=== PATIENT | male | born 1995 | race Caucasian/White ===

== ENCOUNTER 2018-07-16 19:13 | Emergency (ER) | payer OTHER ==
[2018-07-16 19:17] VITALS: BP 135/89; PULSE 91; RESP 18; TEMP 98.3
--- NOTE | 2018-07-16 19:33 | ED ---
Lower Extremity Injury HPI - General Chief Complaint: Extremity Injury, Lower Stated Complaint: rt foot injury Time Seen by Provider: 07/16/18 19:24 Source: patient, family Mode of arrival: ambulatory Limitations: no limitations - History of Present Illness Initial Comments: 22-year-old male patient presents to the emergency department today for evaluati on of right foot pain. Patient states that around 2:00 this afternoon he kicked a door. Patient states since then he has been having pain to the dorsal aspect of his right foot. Patient denies any swelling or ecchymosis. Denies any numbness or tingling to the foot. Denies any previous injury to the foot. States he is able to ambulate but it is painful. Denies taking any pain medication for his symptoms. Denies any other injuries. Patient denies any headache, neck pain, back pain, chest pain, shortness of breath, dizziness, weakness, abdominal pain, nausea, vomiting, or difficulties with bowel movements or urination. - Related Data Home Medications Medication Instructions Recorded Confirmed No Known Home Medications 07/16/18 07/16/18 Allergies Allergy/AdvReac Type Severity Reaction Status Date / Time No Known Allergies Allergy Verified 07/16/18 19:17 Review of Systems ROS Statement: Those systems with pertinent positive or pertinent negative responses have been documented in the HPI. ROS Other: All systems not noted in ROS Statement are negative. Past Medical History Past Medical History: No Reported History History of Any Multi-Drug Resistant Organisms: None Reported Past Surgical History: Orthopedic Surgery Past Psychological History: No Psychological Hx Reported Smoking Status: Never smoker Past Alcohol Use History: None Reported Past Drug Use History: None Reported General Exam Limitations: no limitations General appearance: alert, in no apparent distress, other (This is a well- developed, well-nourished adult male patient in no acute distress. Vital signs upon presentation are temperature 98.3F, pulse 91, respirations 18, blood pressure 135/89, pulse ox 98% on room air.) Eye exam: Present: normal appearance, PERRL, EOMI. Absent: scleral icterus, conjunctival injection, periorbital swelling ENT exam: Present: normal exam, normal oropharynx, mucous membranes moist Respiratory exam: Present: normal lung sounds bilaterally. Absent: respiratory distress, wheezes, rales, rhonchi, stridor Cardiovascular Exam: Present: regular rate, normal rhythm, normal heart sounds. Absent: systolic murmur, diastolic murmur, rubs, gallop, clicks Extremities exam: Present: full ROM, tenderness (Right foot, dorsal aspect especially over the right fourth and fifth metatarsal. ), normal capillary refill, other (Skin to the right foot is pink, warm, dry. Cap refills less than 3 seconds. Pedal posttibial pulses are 2+ and equal bilaterally. Full range of motion is intact.). Absent: normal inspection, pedal edema, joint swelling, calf tenderness Neurological exam: Present: alert, oriented X3, CN II-XII intact Psychiatric exam: Present: normal affect, normal mood Skin exam: Present: warm, dry, intact, normal color. Absent: rash Course Vital Signs 07/16/18 19:15 Temperature 98.3 F Pulse Rate 91 Respiratory 18 Rate Blood Pressure 135/89 O2 Sat by Pulse 98 Oximetry Medical Decision Making - Medical Decision Making 22-year-old male patient presents to the emergency department today for evaluation of right foot pain after kicking a door earlier today. Physical examination did reveal some tenderness over the dorsal aspect of the right foot especially over the fourth and fifth metatarsals. Patient is able to ambulate. Neurovascular status is intact. X-ray was obtained and showed no acute osseous abnormalities. Patient symptoms are most consistent with foot sprain. He will be treated with compression, rest, ice, elevation. He is instructed to follow- up with his primary care physician F repeat x-rays performed in 7-10 days if pain symptoms persist. Return parameters were discussed in detail. He verbalizes understanding and agrees this plan. - Radiology Data Radiology results: report reviewed, image reviewed 3 views of the right foot are obtained. Report was reviewed in its entirety. Impression by Dr. Wilson shows negative right foot exam. Disposition Clinical Impression: Sprain of right foot Disposition: HOME SELF-CARE Condition: Good Instructions (If sedation given, give patient instructions): Foot Sprain (ED) Additional Instructions: Use Chano wrap for comfort and support. Rest, ice, elevate the foot. Take, Motrin for pain control. Return to the emergency department immediately for any new, worsening, or concerning symptoms. Is patient prescribed a controlled substance at d/c from ED?: No Referrals: None,Stated [Primary Care Provider] - 1-2 days Time of Disposition: 20:08
--- NOTE | 2018-07-16 19:54 | XR ---
EXAMINATION TYPE: XR foot complete RT DATE OF EXAM: 07/16/2018 COMPARISON: NONE HISTORY: Foot pain TECHNIQUE: 3 views FINDINGS: Metatarsals appear intact. I see no fracture nor dislocation. There are no erosions. Joint spaces are normal. IMPRESSION: Negative right foot exam.
== END 2018-07-16 20:10 | disposition home or self-care (01) ==
LOC: EC 19:13
DX: S93.601A Unspecified sprain of right foot, initial encounter (principal); W22.8XXA Striking against or struck by other objects, initial encounter; Y92.009 Unspecified place in unspecified non-institutional (private) residence as the place of occurrence of the external cause
CPT/HCPCS: 99283